=== PATIENT | female | born 1985 | race Caucasian/White ===

== ENCOUNTER → 2017-03-01 | Outpatient (CLI) | payer OTHER ==
--- NOTE | 2017-03-01 12:27 | KCIC ---
Examination: Ultrasound bilateral lower extremity venous duplex HISTORY: History of bilateral lower extremity swelling, pain COMPARISON: None available Technique: Grayscale, color Doppler 2-D, spectral waveform analysis of the bilateral lower extremity venous system were performed FINDINGS: The visualized common femoral vein, superficial femoral vein , popliteal vein demonstrate normal compression and augmentation of flow. The visualized calf veins are patent. 2.5 cm lymph node identified in the left inguinal region. IMPRESSION: No evidence of deep venous thrombosis bilateral lower extremity venous system. Electronically signed by: Rc Groves MD (03/01/2017 12:24 PM)
== END | disposition home or self-care (01) ==
LOC: KCIC US 08:52
PROVIDERS: ATTEND Nurse Practitioner
DX: M79.604 Pain in right leg (principal); M79.605 Pain in left leg; M79.89 Other specified soft tissue disorders
CPT/HCPCS: 93970